=== PATIENT | male | born 1995 | race Caucasian/White ===

== ENCOUNTER 2017-11-02 10:51 | Emergency (ER) | payer MEDICAID ==
[~2017-11-02] VITALS: Ht 172.7 cm; Wt 82.6 kg
[2017-11-02 11:31] VITALS: BP_SYST 138
--- NOTE | 2017-11-02 12:10 | NUR ---
Patient to ER parr 1 to [facility] for evaluation. Side rails up. Assumed care of patient.
--- NOTE | 2017-11-02 12:35 | NUR ---
Dr. Encinas at bedside for eval.
[2017-11-02 12:53] VITALS: BP_SYST 132
--- NOTE | 2017-11-02 12:55 | NUR ---
Patient given written and verbal discharge instructions and verbalizes understanding. ER MD discussed with patient the results and treatment provided. Patient in stable condition. ID arm band removed. Rx of Prednisone and Motrin given. Patient educated on pain management and to follow up with PMD. Pain Scale 3/10 tolerable for pt . Opportunity for questions provided and answered.
== END 2017-11-02 12:53 | disposition home or self-care (01) ==
LOC: SED 10:51
DX: R07.89 Other chest pain (principal)
CPT/HCPCS: 93005; 99283